=== PATIENT | female | born 1975 | race American Indian/Alaskan Native ===

== ENCOUNTER 2020-05-04 19:07 | Emergency (ER) | payer OTHER ==
[2020-05-04] MEDS ORDERED: traMADol 50 MG TAB PO ONE (20:15)
--- NOTE | 2020-05-04 20:23 | Emergency Department Report ---
ED Fall HPI - General Chief Complaint: Fall Stated Complaint: FALL/ BACK PAIN Time Seen by Provider: 05/04/20 20:10 Source: patient Mode of arrival: Ambulatory - History of Present Illness Initial Comments: Patient is a 45-year-old female presents emergency room after a fall that occurred earlier today. She states that she was cleaning something off the floor in the kitchen and was barefoot and accidentally slipped and fell. She is complaining of lower back pain and entire right arm pain. She denies ever injuring in the past. She denies any loss of consciousness, vision changes, vomiting, numbness, weakness, bowel or bladder incontinence, any other injury. No past medical history. Allergy to amoxicillin and diclofenac. - Related Data Previous Rx's Medication Instructions Recorded Last Taken Type Naproxen [EC-Naproxen] 500 mg PO BID PRN #14 tablet. 05/04/20 Unknown Rx methOCARBAMOL [Robaxin TAB] 500 mg PO BID PRN #14 tab 05/04/20 Unknown Rx Allergies Allergy/AdvReac Type Severity Reaction Status Date / Time amoxicillin Allergy Hives Verified 05/04/20 20:14 diclofenac [From Voltaren] Allergy Itching Verified 05/04/20 20:14 ED Review of Systems ROS: Stated complaint: FALL/ BACK PAIN Other details as noted in HPI Comment: All other systems reviewed and negative ED Past Medical Hx - Past Medical History Previous Medical History?: Yes Hx Hypertension: Yes Hx Asthma: Yes Additional medical history: Fibroids - Surgical History Past Surgical History?: No - Social History Smoking Status: Never Smoker Substance Use Type: None - Medications Home Medications: Home Medications Medication Instructions Recorded Confirmed Last Taken Type Naproxen [EC-Naproxen] 500 mg PO BID PRN #14 tablet. 05/04/20 Unknown Rx methOCARBAMOL [Robaxin TAB] 500 mg PO BID PRN #14 tab 05/04/20 Unknown Rx ED Physical Exam - General Limitations: No Limitations General appearance: alert, in no apparent distress - Head Head exam: Present: atraumatic, normocephalic - Eye Eye exam: Present: normal appearance - ENT ENT exam: Present: mucous membranes moist - Neck Neck exam: Present: normal inspection, full ROM. Absent: tenderness - Respiratory Respiratory exam: Present: normal lung sounds bilaterally. Absent: respiratory distress, wheezes, rales, rhonchi, stridor, chest wall tenderness, accessory muscle use, decreased breath sounds, prolonged expiratory - Cardiovascular Cardiovascular Exam: Present: regular rate, normal rhythm, normal heart sounds. Absent: systolic murmur, diastolic murmur, rubs, gallop - Extremities Exam Extremities exam: Present: other (ttp to the right wrist, no snuffbox ttp, FROM of the RUE, discomfort with ROM Of the right wrist and right shoulder, no sulcus sign, clavicles are equal, no clavicular ttp, no edema, no ecchymosis, no deformity, neurovascularly intact) - Back Exam Back exam: Present: normal inspection, full ROM, paraspinal tenderness (bilateral lumbar paraspinal muscular ttp, no midline C-spine, T-spine or L- spine ttp, no step offs, no deformities). Absent: vertebral tenderness - Neurological Exam Neurological exam: Present: alert, oriented X3, CN II-XII intact, normal gait. Absent: motor sensory deficit - Psychiatric Psychiatric exam: Present: normal affect, normal mood - Skin Skin exam: Present: warm, dry, intact ED Course Vital Signs 05/04/20 20:07 Temperature 98.0 F Pulse Rate 77 Respiratory 16 Rate Blood Pressure 175/101 O2 Sat by Pulse 98 Oximetry ED Medical Decision Making - Radiology Data Radiology results: report reviewed Ordering Physician: CAROL GRANT Date of Service: 05/04/20 Procedure(s): XR forearm RT Accession Number(s): [id number] cc: CAROL GRANT Fluoro Time In Minutes: RIGHT FOREARM 2 VIEW(S) INDICATION / CLINICAL INFORMATION: fall, right arm pain COMPARISON: None available. FINDINGS: BONES / JOINT(S): No acute fracture or subluxation. No significant arthritis. SOFT TISSUES: No significant abnormality. ADDITIONAL FINDINGS: None. IMPRESSION: No acute osseous abnormality. Signer Name: Tanja Coon MD Signed: 05/04/2020 9:02 PM Workstation Name: [id number] Transcribed By: SS Dictated By: TANJA COON Electronically Authenticated By: TANJA COON Signed Date/Time: 05/04/202101 DD/ 00 TD/TT: Ordering Physician: CAROL GRANT Date of Service: 05/04/20 Procedure(s): XR hand 3+V RT Accession Number(s): [id number] cc: CAROL GRANT Fluoro Time In Minutes: RIGHT HAND 3 VIEW(S) INDICATION / CLINICAL INFORMATION: fall, right arm pain COMPARISON: None available. FINDINGS: BONES / JOINT(S): No acute fracture or subluxation. No significant arthritis. SOFT TISSUES: No significant abnormality. ADDITIONAL FINDINGS: None. IMPRESSION: No acute osseous abnormality. Signer Name: Tanja Coon MD Signed: 05/04/2020 9:04 PM Workstation Name: [id number] Transcribed By: Dictated By: TANJA COON Electronically Authenticated By: TANJA COON Signed Date/Time: 05/04/202103 DD/ 02 TD/TT: Ordering Physician: CAROL GRANT Date of Service: 05/04/20 Procedure(s): XR humerus 2+V RT Accession Number(s): [id number] cc: CAROL GRANT Fluoro Time In Minutes: RIGHT HUMERUS 4 VIEW(S) INDICATION / CLINICAL INFORMATION: fall, right arm pain COMPARISON: None available. FINDINGS: BONES / JOINT(S): No acute fracture or subluxation. No significant arthritis. SOFT TISSUES: No significant abnormality. ADDITIONAL FINDINGS: None. IMPRESSION: No acute osseous abnormality. Signer Name: Tanja Cono MD Signed: 05/04/2020 9:03 PM Workstation Name: [id number] Transcribed By: Dictated By: TANJA COON Electronically Authenticated By: TANJA COON Signed Date/Time: 05/04/202102 DD/ 01 TD/TT: Ordering Physician: CAROL GRANT Date of Service: 05/04/20 Procedure(s): XR shoulder 2+V RT Accession Number(s): [id number] cc: CAROL GRANT Fluoro Time In Minutes: RIGHT SHOULDER 3 VIEWS INDICATION / CLINICAL INFORMATION: Fall with right shoulder pain. COMPARISON: None available. FINDINGS: BONES / JOINT(S): There are mild degenerative changes involving the acromioclav icular joint. There is no evidence of fracture or subluxation. SOFT TISSUES: No significant abnormality. ADDITIONAL FINDINGS: The visualized right lung is clear. Signer Name: Pb Underwood MD Signed: 05/04/2020 9:02 PM Workstation Name: [id number] Transcribed By: RT Dictated By: Pb Underwood MD Electronically Authenticated By: Pb Underwood MD Signed Date/Time: 05/04/202101 DD/ 01 TD/TT: Ordering Physician: CAROL GRANT Date of Service: 05/04/20 Procedure(s): XR spine lumbosacral 2-3V Accession Number(s): [id number] cc: CAROL GRANT Fluoro Time In Minutes: LUMBOSACRAL SPINE 2 VIEWS INDICATION / CLINICAL INFORMATION: Slipped and fell x2 today with low back pain. COMPARISON: None available. FINDINGS: BONES / JOINT(S): The vertebral body heights and disc spaces are well- maintained. The pedicles are intact and the SI joints are normal. There is no evidence of fracture or subluxation. SOFT TISSUES: No significant abnormality. ADDITIONAL FINDINGS: None. Signer Name: Pb Underwood MD Signed: 05/04/2020 9:01 PM Workstation Name: [id number] Transcribed By: RT Dictated By: Pb Underwood MD Electronically Authenticated By: Pb Underwood MD Signed Date/Time: 05/04/202100 DD/ 99 TD/TT: - Medical Decision Making Patient is a 45-year-old female presents emergency room after a fall that occurred earlier today. She states that she was cleaning something off the floor in the kitchen and was barefoot and accidentally slipped and fell. She is complaining of lower back pain and entire right arm pain. She denies ever injuring in the past. She denies any loss of consciousness, vision changes, vomiting, numbness, weakness, bowel or bladder incontinence, any other injury. No past medical history. Allergy to amoxicillin and diclofenac. Initial vitals with elevated blood pressure, otherwise stable. On exam: ttp to the right wris t, no snuffbox ttp, FROM of the RUE, discomfort with ROM Of the right wrist and right shoulder, no sulcus sign, clavicles are equal, no clavicular ttp, no edema, no ecchymosis, no deformity, neurovascularly intact, bilateral lumbar paraspinal muscular ttp, no midline C-spine, T-spine or L-spine ttp, no step offs, no deformities. No focal neuro deficits. XR of the RUE and XR lumbar spine with no acute process. discussed all results with patient and answered questions. Patient given tramadol while in the emergency department and symptoms improved. Patient given prescription for naproxen and Robaxin. Advised patient to please take medication as prescribed as needed. May use ice pack, heating pad, rest, and salt bath. Follow-up with your primary care for reexamination. Return to emergency room for any new or worsening symptoms. - Differential Diagnosis strain, sprain, fx, dislocation, contusion, tendnitis Critical care attestation.: If time is entered above; I have spent that time in minutes in the direct care of this critically ill patient, excluding procedure time. ED Disposition Clinical Impression: Right arm pain Fall Qualifiers: Encounter type: initial encounter Qualified Code(s): W19.XXXA - Unspecified fall, initial encounter Acute lumbar myofascial strain Qualifiers: Encounter type: initial encounter Qualified Code(s): S39.012A - Strain of muscle, fascia and tendon of lower back, initial encounter Disposition: DC- TO HOME OR SELFCARE Is pt being admited?: No Does the pt Need Aspirin: No Condition: Stable Instructions: Muscle Strain, [id number] Additional Instructions: patient to please take medication as prescribed as needed. May use ice pack, heating pad, rest, and salt bath. Follow-up with your primary care for reexamination. Return to emergency room for any new or worsening symptoms. Prescriptions: Naproxen [EC-Naproxen] 500 mg PO BID PRN #14 tablet. PRN Reason: pain methOCARBAMOL [Robaxin TAB] 500 mg PO BID PRN #14 tab PRN Reason: pain Referrals: PRIMARY CARE, [Primary Care Provider] - 2-3 Days Time of Disposition: 21:16 Print Language: ARMENIAN
--- NOTE | 2020-05-04 21:05 | XRay Report ---
LUMBOSACRAL SPINE 2 VIEWS INDICATION / CLINICAL INFORMATION: Slipped and fell x2 today with low back pain. COMPARISON: None available. FINDINGS: BONES / JOINT(S): The vertebral body heights and disc spaces are well-maintained. The pedicles are in tact and the SI joints are normal. There is no evidence of fracture or subluxation. SOFT TISSUES: No significant abnormality. ADDITIONAL FINDINGS: None. Signer Name: Pb Underwood MD Signed: 05/04/2020 9:01 PM Workstation Name: [id number]
--- NOTE | 2020-05-04 21:06 | XRay Report ---
RIGHT SHOULDER 3 VIEWS INDICATION / CLINICAL INFORMATION: Fall with right shoulder pain. COMPARISON: None available. FINDINGS: BONES / JOINT(S): There are mild degenerative changes involving the acromioclavicular joint. There is no evidence of fracture or subluxation. SOFT TISSUES: No significant abnormality. ADDITIONAL FINDINGS: The visualized right lung is clear. Signer Name: Pb Underwood MD Signed: 05/04/2020 9:02 PM Workstation Name: [id number]
--- NOTE | 2020-05-04 21:06 | XRay Report ---
RIGHT FOREARM 2 VIEW(S) INDICATION / CLINICAL INFORMATION: fall, right arm pain COMPARISON: None available. FINDINGS: BONES / JOINT(S): No acute fracture or subluxation. No significant arthritis. SOFT TISSUES: No significant abnormality. ADDITIONAL FINDINGS: None. IMPRESSION: No acute osseous abnormality. Signer Name: Jt Coon MD Signed: 05/04/2020 9:02 PM Workstation Name: [id number]
--- NOTE | 2020-05-04 21:07 | XRay Report ---
RIGHT HUMERUS 4 VIEW(S) INDICATION / CLINICAL INFORMATION: fall, right arm pain COMPARISON: None available. FINDINGS: BONES / JOINT(S): No acute fracture or subluxation. No significant arthritis. SOFT TISSUES: No significant abnormality. ADDITIONAL FINDINGS: None. IMPRESSION: No acute osseous abnormality. Signer Name: Jt Coon MD Signed: 05/04/2020 9:03 PM Workstation Name: [id number]
--- NOTE | 2020-05-04 21:08 | XRay Report ---
RIGHT HAND 3 VIEW(S) INDICATION / CLINICAL INFORMATION: fall, right arm pain COMPARISON: None available. FINDINGS: BONES / JOINT(S): No acute fracture or subluxation. No significant arthritis. SOFT TISSUES: No significant abnormality. ADDITIONAL FINDINGS: None. IMPRESSION: No acute osseous abnormality. Signer Name: Jt Coon MD Signed: 05/04/2020 9:04 PM Workstation Name: [id number]
[2020-05-04 22:17] VITALS: BP 156/95
== END 2020-05-04 22:18 | disposition home or self-care (01) ==
LOC: ED 19:07
DX: S39.012A Strain of muscle, fascia and tendon of lower back, initial encounter (principal); M79.601 Pain in right arm; I10 Essential (primary) hypertension; J45.909 Unspecified asthma, uncomplicated; Z79.899 Other long term (current) drug therapy; Z88.1 Allergy status to other antibiotic agents; Z88.8 Allergy status to other drugs, medicaments and biological substances; W01.0XXA Fall on same level from slipping, tripping and stumbling without subsequent striking against object, initial encounter; Y93.89 Activity, other specified; Y92.89 Other specified places as the place of occurrence of the external cause; Y99.8 Other external cause status
CPT/HCPCS: 72100

== ENCOUNTER 2020-07-26 09:24 | Emergency (ER) | payer OTHER ==
[2020-07-26] MEDS ORDERED: dexAMETHasone 4 MG/ML VIAL IM ONE (12:03)
--- NOTE | 2020-07-26 12:03 | Emergency Department Report ---
Minor Respiratory - HPI Chief Complaint: Neck Pain/Injury Stated Complaint: THROAT PAIN Time Seen by Provider: 07/26/20 11:51 Duration: 3 Days Pain Location: Facial, Throat, Nose, Ear Severity: mild Minor Respiratory: Yes Able to Tolerate Fluids, Yes Ear Pain, No Rhinorrhea, No Sore Throat, No Cough, No Sick Contacts, No Hemoptysis, No Chest Pain, No Shortness of Breath, No Fever Other History: 45 YO COMES TO ER WITH CO SWELLING IN HER NECK. ENDORSES LEFT EAR PAIN. NO OMARI. NO CP. NO SOB. DID NOT SEE PCP. 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 AMBULATORY AND NON ILL APPEARING. ED Review of Systems ROS: Stated complaint: THROAT PAIN Other details as noted in HPI Comment: All other systems reviewed and negative ED Past Medical Hx - Past Medical History Previous Medical History?: Yes Hx Hypertension: Yes Hx Asthma: Yes Additional medical history: Fibroids. Thyroid - Surgical History Past Surgical History?: No - Family History Family history: no significant - Social History Smoking Status: Never Smoker Substance Use Type: None - Medications Home Medications: Home Medications Medication Instructions Recorded Confirmed Last Taken Type Cetirizine HCl [ZyrTEC] 10 mg PO DAILY #30 capsule 07/26/20 Unknown Rx Fluticasone [Flonase] 1 spray NS QDAY #1 bottle 07/26/20 Unknown Rx cephALEXin [Keflex] 500 mg PO Q12HR #20 cap 07/26/20 Unknown Rx predniSONE [Deltasone] 20 mg PO DAILY #5 tablet 07/26/20 Unknown Rx Minor Respiratory Exam - Exam General: Vital signs noted. No distress. Alert and acting appropriately. HEENT: Yes Moist Mucous Membranes, No Pharyngeal Erythema, No Pharyngeal Exudates, No Rhinorrhea, No Conjuctival Injection, No Frontal Tenderness, No Maxillary Tenderness Ear: Both TM Erythema, Neither TM Bulge, Neither EAC Pain, Neither EAC Discharge Neck: Yes Adenopathy (L PRE AURICULAR AND SUBMENTAL ), Yes Supple Lungs: Yes Good Air Exchange, No Wheezes, No Ronchi, No Stridor, No Cough, No Labored Respirations, No Retractions, No Use of Accessory Muscles, No Other Abnormal Lung Sounds Heart: Yes Regular, No Murmur Abdomen: Yes Normal Bowel Sounds, No Tenderness, No Peritoneal Signs Skin: No Rash, No Edema Neurologic: Alert and oriented, no deficits. Musculoskeletal: Unremarkable. ED Course Vital Signs 07/26/20 09:59 Temperature 98.2 F Pulse Rate 77 Respiratory 16 Rate Blood Pressure 155/100 [Right] O2 Sat by Pulse 99 Oximetry ED Medical Decision Making - Medical Decision Making TM RED AND EFFUSION L EAR LYMPHADENOPATHY L NECK VSS NO FEVER PT DENIES HX OF HTN;-- ALTHOUGH CHART DOES INDICATED HX. SHE IS OBESE NO CP OR SOB; NO HEADACHE NEURO INTACT PT EDUCATED ON ELEVATED BLOOD PRESSURES- SHE WILL MONITOR AND IF REMAINS ELEVATED WILL SEE PCP NON ILL APPEARING ON EXAM TAKING PO MEDICATED WITH DECADRON IN ER DC HOME WITH DC PLAN OF CARE INCLUDING PCP FOLLOW UP. PT VERBALIZES UNDERSTANDING OF DC PLAN OF CARE. PT UNDERSTANDS SHE SHOULD SEE PCP FOR FOLLOW UP AFTER ANTIBIOTIC TO BE SURE LYMPHADENOPATHY SUBSIDES Vital Signs 07/26/20 09:59 Temperature 98.2 F Pulse Rate 77 Respiratory 16 Rate Blood Pressure 155/100 [Right] O2 Sat by Pulse 99 Oximetry - Differential Diagnosis URI Critical care attestation.: If time is entered above; I have spent that time in minutes in the direct care of this critically ill patient, excluding procedure time. ED Disposition Clinical Impression: Upper respiratory infection, Lymphadenopathy, Elevated blood pressure reading Disposition: DC-01 TO HOME OR SELFCARE Is pt being admited?: No Does the pt Need Aspirin: No Condition: Stable Additional Instructions: meds as ordered today motrin or tylenol for pain follow up with pcp after antibiotic finished to be sure you are getting better referral below Prescriptions: predniSONE [Deltasone] 20 mg PO DAILY #5 tablet Fluticasone [Flonase] 1 spray NS QDAY #1 bottle cephALEXin [Keflex] 500 mg PO Q12HR #20 cap Cetirizine HCl [ZyrTEC] 10 mg PO DAILY #30 capsule Referrals: JEANCARLOS LYNN MD [Staff Physician] - 3-5 Days Time of Disposition: 12:01
[2020-07-26 12:51] VITALS: BP 153/97
== END 2020-07-26 12:59 | disposition home or self-care (01) ==
LOC: ED 09:24
DX: J06.9 Acute upper respiratory infection, unspecified (principal); R59.1 Generalized enlarged lymph nodes; I10 Essential (primary) hypertension; J45.909 Unspecified asthma, uncomplicated; Z79.899 Other long term (current) drug therapy; Z91.040 Latex allergy status; Z88.8 Allergy status to other drugs, medicaments and biological substances
CPT/HCPCS: 96372; 99282; J1100

== ENCOUNTER 2020-09-20 18:41 | Emergency (ER) | payer OTHER ==
--- NOTE | 2020-09-20 20:36 | Emergency Department Report ---
ED Female HPI - General Chief complaint: Vaginal Bleeding Stated complaint: VAGINAL BLEEDING, CRAMPS, DIZZINESS, WEAK Time Seen by Provider: 09/20/20 20:32 Source: patient Mode of arrival: Ambulatory Limitations: No Limitations - History of Present Illness Initial comments: This 45-year-old -[place] female with a possible history of uterine f ibroids and emerged department complaining of a couple week history pelvic pain associated with vaginal bleeding of unknown etiology. She reports having cycles are very heavy menstrual flow and clots. She denies any pelvic pain, reports no no no dysuria, no fever, chills, sweats, no chest pain palpitations, no nausea no vomiting. MD Complaint: vaginal bleeding, pelvic pain Location: suprapubic Radiation: suprapubic Severity: mild, moderate Quality: cramping, dull Consistency: constant Improves with: none Worsens with: none Are you Now?: No - Related Data Previous Rx's Medication Instructions Recorded Last Taken Type Cetirizine HCl [ZyrTEC] 10 mg PO DAILY #30 capsule 07/26/20 Unknown Rx Fluticasone [Flonase] 1 spray NS QDAY #1 bottle 07/26/20 Unknown Rx atenoloL [Tenormin] 25 mg PO DAILY #30 tab 07/26/20 Unknown Rx cephALEXin [Keflex] 500 mg PO Q12HR #20 cap 07/26/20 Unknown Rx predniSONE [Deltasone] 20 mg PO DAILY #5 tablet 07/26/20 Unknown Rx Acetaminophen/Codeine [Tylenol 1 tab PO Q6H PRN #14 tab 09/21/20 Unknown Rx /Codeine # 3 tab] Allergies Allergy/AdvReac Type Severity Reaction Status Date / Time amoxicillin Allergy Hives Verified 05/04/20 20:14 diclofenac [From Voltaren] Allergy Itching Verified 05/04/20 20:14 latex Allergy Rash Verified 07/26/20 12:45 ED Review of Systems ROS: Stated complaint: VAGINAL BLEEDING, CRAMPS, DIZZINESS, WEAK Other details as noted in HPI Comment: All other systems reviewed and negative ED Past Medical Hx - Past Medical History Previous Medical History?: Yes Hx Hypertension: Yes Hx Asthma: Yes Additional medical history: Fibroids. Thyroid - Surgical History Past Surgical History?: No - Social History Smoking Status: Never Smoker Substance Use Type: None - Medications Home Medications: Home Medications Medication Instructions Recorded Confirmed Last Taken Type Cetirizine HCl [ZyrTEC] 10 mg PO DAILY #30 capsule 07/26/20 Unknown Rx Fluticasone [Flonase] 1 spray NS QDAY #1 bottle 07/26/20 Unknown Rx atenoloL [Tenormin] 25 mg PO DAILY #30 tab 07/26/20 Unknown Rx cephALEXin [Keflex] 500 mg PO Q12HR #20 cap 07/26/20 Unknown Rx predniSONE [Deltasone] 20 mg PO DAILY #5 tablet 07/26/20 Unknown Rx Acetaminophen/Codeine [Tylenol 1 tab PO Q6H PRN #14 tab 09/21/20 Unknown Rx /Codeine # 3 tab] ED Physical Exam - General Limitations: No Limitations General appearance: alert, in no apparent distress - Head Head exam: Present: atraumatic, normocephalic - Eye Eye exam: Present: normal appearance - ENT ENT exam: Present: mucous membranes moist - Neck Neck exam: Present: normal inspection - Respiratory Respiratory exam: Present: normal lung sounds bilaterally. Absent: respiratory distress - Cardiovascular Cardiovascular Exam: Present: regular rate, normal rhythm. Absent: systolic murmur, diastolic murmur, rubs, gallop - GI/Abdominal GI/Abdominal exam: Present: soft, tenderness (Some superior tenderness with palpation), normal bowel sounds. Absent: distended, rebound, rigid - Extremities Exam Extremities exam: Present: normal inspection - Back Exam Back exam: Present: normal inspection - Neurological Exam Neurological exam: Present: alert, oriented X3 - Psychiatric Psychiatric exam: Present: normal affect, normal mood - Skin Skin exam: Present: warm, dry, intact, normal color. Absent: rash ED Course Vital Signs 09/20/20 20:32 Temperature 98.8 F Pulse Rate 93 H Respiratory 18 Rate Blood Pressure 168/104 O2 Sat by Pulse 98 Oximetry ED Medical Decision Making - Lab Data Result diagrams: 09/20/20 20:43 09/20/20 20:43 - Radiology Data Radiology results: report reviewed Ultrasound shows large uterine fibroid. Unable to plan for transfer pose due to a Escom issue - Medical Decision Making Female presents emergency department with over few days days of episodic vaginal bleeding most likely of a nonemergent etiology. Based on the history, examination, the ED work-up patient's presentation not consistent with an ectopic , molar , life threatening coagulopathy, serious bacterial infection, central process or other emergency. Patient's bleeding is most likely secondary to, her large fibroids, or the nonemergent cause of abnormal uterine bleeding. No vaginal tears were appreciated on examination Disposition: We will discharge home with return precautions and instructions for prompt [facility] follow-up Critical care attestation.: If time is entered above; I have spent that time in minutes in the direct care of this critically ill patient, excluding procedure time. ED Disposition Clinical Impression: Leiomyoma of body of uterus Disposition: DC-01 TO HOME OR SELFCARE Is pt being admited?: No Does the pt Need Aspirin: No Condition: Stable Instructions: Uterine Artery Embolization for Fibroids, Myomectomy, Uterine Fibroids, Dysfunctional Uterine Bleeding Prescriptions: Acetaminophen/Codeine [Tylenol /Codeine # 3 tab] 1 tab PO Q6H PRN #14 tab PRN Reason: Pain , Severe (7-10) Referrals: [facility] [Provider Group] - 3-5 Days PRIMARY CARE [Primary Care Provider] - 3-5 Days
[2020-09-20 20:41] VITALS: BP 168/104
[2020-09-20 21:03] LABS: Basophils # (Auto) 0.1 K/mm3 (0.0-0.1); Basophils % (Auto) 0.7 % (0.0-1.8); Eosinophils # (Auto) 0.2 K/mm3 (0.0-0.4); Eosinophils % (Auto) 2.3 % (0.0-4.3); Hematocrit 37.8 % (30.3-42.9); Hemoglobin 12.3 gm/dl (10.1-14.3); Lymphocytes # (Auto) 3.4 K/mm3 (1.2-5.4); Lymphocytes % (Auto) 33.8 % (13.4-35.0); Mean Corpuscular HGB Conc 33 % (30-34); Mean Corpuscular Volume 81 fl (79-97); Monocytes # (Auto) 0.7 K/mm3 (0.0-0.8); Monocytes % (Auto) 7.4 % (0.0-7.3); Platelet Count 290 K/mm3 (140-440); Red Blood Count 4.68 M/mm3 (3.65-5.03)
[2020-09-20 21:21] LABS: BUN/Creatinine Ratio 10; Blood Urea Nitrogen 8 mg/dL (7-17); Calcium 8.6 mg/dL (8.4-10.2); Hemolysis Index 3
[2020-09-21] MEDS ORDERED: HYDROcodone/ACETAMINOPHEN 5-325 MG TAB PO STA (01:39)
[2020-09-21 02:36] LABS: Bilirubin,Urine NEG (Negative); Blood,Urine LG (Negative); Calcium Oxalate Crystals,Urine 1+; Color,Urine Yellow (Yellow); Mucus,Urine 2+ /HPF; Protein,Urine <15 mg/dL mg/dL (Negative); Urobilinogen,Urine < 2.0 mg/dL (<2.0)
--- NOTE | 2020-09-21 08:12 | Ultrasound Report ---
ULTRASOUND PELVIS INDICATION / CLINICAL INFORMATION: pelvic pain and bleeding. TECHNIQUE: Transabdominal. Duplex Color Doppler used: Yes. COMPARISON: None available FINDINGS: UTERUS: Enlarged uterus with heterogeneous focus at the fundus measuring 7.7 x 5.8 x 6.2 cm. Endometr ial thickness is 4 mm in this presumably premenopausal patient. RIGHT ADNEXA: No significant ovarian cyst or mass. Normal color Doppler blood flow. LEFT ADNEXA: Ovary is not well visualized. No significant abnormality. URINARY BLADDER: No significant abnormality. FREE FLUID: Minimal. ADDITIONAL FINDINGS: None. IMPRESSION: 1. Large heterogeneous focus at the uterine fundus likely representing a fibroid. Consider further ev aluation, as warranted. 2. Minimal free fluid. Signer Name: Pb Kelley MD Signed: 09/20/2020 10:09 PM Workstation Name: [id number]
== END 2020-09-21 01:53 | disposition home or self-care (01) ==
LOC: ED 18:41
DX: D25.9 Leiomyoma of uterus, unspecified (principal); I10 Essential (primary) hypertension; J45.909 Unspecified asthma, uncomplicated; Z79.899 Other long term (current) drug therapy; Z88.1 Allergy status to other antibiotic agents; Z88.8 Allergy status to other drugs, medicaments and biological substances; Z91.040 Latex allergy status
CPT/HCPCS: 36415; 76856; 76857; 80048; 81001; 84703; 85025

== ENCOUNTER 2020-12-24 08:52 | Emergency (ER) | payer OTHER ==
[2020-12-24 09:35] VITALS: BP 153/103
--- NOTE | 2020-12-24 10:18 | Emergency Department Report ---
ED ENT HPI - General Chief complaint: Earache Stated complaint: EAR/NOSE/THROAT Time Seen by Provider: 12/24/20 10:07 Source: patient Mode of arrival: Ambulatory Limitations: No Limitations - History of Present Illness Initial comments: 45 y/o female comes in for 3-4 week h/o of intermittent cough, sore throat and bumps on tongue. No fever or chills no n/v. Patient denies any chest pain shortness of breath. She is unvaccinated. She has a history of hypertension states she did not take her medication today but she takes atenolol. Patient does have a primary care provider at [facility] but states that she came to the emergency room because it is more convenient for her and her family. complaint: sore throat, ear pain Onset/Timin -: week(s) Location: L ear Severity scale (0 -10): 3 Quality: burning Consistency: intermittent Improves with: none Worsens with: none Associated Symptoms: cough, sore throat. denies: fever, gum swelling, toothache, pain with swallowing, tinnitus, discharge from ear, rhinorrhea - Related Data Previous Rx's Medication Instructions Recorded Last Taken Type Cetirizine HCl [ZyrTEC] 10 mg PO DAILY #30 capsule 07/26/20 Unknown Rx Fluticasone [Flonase] 1 spray NS QDAY #1 bottle 07/26/20 Unknown Rx atenoloL [Tenormin] 25 mg PO DAILY #30 tab 07/26/20 Unknown Rx cephALEXin [Keflex] 500 mg PO Q12HR #20 cap 07/26/20 Unknown Rx predniSONE [Deltasone] 20 mg PO DAILY #5 tablet 07/26/20 Unknown Rx Acetaminophen/Codeine [Tylenol 1 tab PO Q6H PRN #14 tab 09/21/20 Unknown Rx /Codeine # 3 tab] Allergies Allergy/AdvReac Type Severity Reaction Status Date / Time amoxicillin Allergy Hives Verified 05/04/20 20:14 diclofenac [From Voltaren] Allergy Itching Verified 05/04/20 20:14 latex Allergy Rash Verified 07/26/20 12:45 ED Dental HPI - General Chief complaint: Earache Stated complaint: EAR/NOSE/THROAT Time Seen by Provider: 12/24/20 10:07 Source: patient Mode of arrival: Ambulatory Limitations: No Limitations - Related Data Previous Rx's Medication Instructions Recorded Last Taken Type Cetirizine HCl [ZyrTEC] 10 mg PO DAILY #30 capsule 07/26/20 Unknown Rx Fluticasone [Flonase] 1 spray NS QDAY #1 bottle 07/26/20 Unknown Rx atenoloL [Tenormin] 25 mg PO DAILY #30 tab 07/26/20 Unknown Rx cephALEXin [Keflex] 500 mg PO Q12HR #20 cap 07/26/20 Unknown Rx predniSONE [Deltasone] 20 mg PO DAILY #5 tablet 07/26/20 Unknown Rx Acetaminophen/Codeine [Tylenol 1 tab PO Q6H PRN #14 tab 09/21/20 Unknown Rx /Codeine # 3 tab] Allergies Allergy/AdvReac Type Severity Reaction Status Date / Time amoxicillin Allergy Hives Verified 05/04/20 20:14 diclofenac [From Voltaren] Allergy Itching Verified 05/04/20 20:14 latex Allergy Rash Verified 07/26/20 12:45 ED Review of Systems ROS: Stated complaint: EAR/NOSE/THROAT Other details as noted in HPI Comment: All other systems reviewed and negative ED Past Medical Hx - Past Medical History Previous Medical History?: Yes Hx Hypertension: Yes Hx Asthma: Yes Additional medical history: Fibroids. Thyroid - Surgical History Past Surgical History?: Yes Hx Appendectomy: Yes Additional Surgical History: , Right shoulder, Eye surgery, Uvula removal , Right ankle surgery - Social History Smoking Status: Never Smoker Substance Use Type: Prescribed - Medications Home Medications: Home Medications Medication Instructions Recorded Confirmed Last Taken Type Cetirizine HCl [ZyrTEC] 10 mg PO DAILY #30 capsule 07/26/20 Unknown Rx Fluticasone [Flonase] 1 spray NS QDAY #1 bottle 07/26/20 Unknown Rx atenoloL [Tenormin] 25 mg PO DAILY #30 tab 07/26/20 Unknown Rx cephALEXin [Keflex] 500 mg PO Q12HR #20 cap 07/26/20 Unknown Rx predniSONE [Deltasone] 20 mg PO DAILY #5 tablet 07/26/20 Unknown Rx Acetaminophen/Codeine [Tylenol 1 tab PO Q6H PRN #14 tab 09/21/20 Unknown Rx /Codeine # 3 tab] ED Physical Exam - General Limitations: No Limitations General appearance: alert, in no apparent distress - Eye Eye exam: Present: normal appearance - ENT ENT exam: Present: mucous membranes moist, TM's normal bilaterally - Expanded ENT Exam Expanded Mouth exam: Present: normal external inspection, tongue normal Throat exam: Positive: normal inspection. Negative: tonsillar erythema, tonsillomegaly, tonsillar exudate ED Course Vital Signs 12/24/20 09:34 Temperature 98.6 F Pulse Rate 91 H Respiratory 20 Rate Blood Pressure 153/103 [Right] O2 Sat by Pulse 98 Oximetry ED Medical Decision Making - Medical Decision Making 45 y/o female comes in for 3-4 week h/o of intermittent cough, sore throat and bumps on tongue. No fever or chills no n/v. Patient denies any chest pain shortness of breath. She is unvaccinated. She has a history of hypertension states she did not take her medication today but she takes atenolol. Patient does have a primary care provider at [facility] but states that she came to the emergency room because it is more convenient for her and her family. Patient has a normal physical examination vital signs are stable except blood pressure is elevated secondary to noncompliant. Patient has no chest pain shortness of breath or dizziness. Patient be discharged home instructed to take her blood pressure medication and follow-up with her primary care provider. Critical care attestation.: If time is entered above; I have spent that time in minutes in the direct care of this critically ill patient, excluding procedure time. ED Disposition Clinical Impression: Hypertension, Earache on left, Cough Disposition: HOME / SELF CARE / HOMELESS Is pt being admited?: No Does the pt Need Aspirin: No Condition: Stable Instructions: Hypertension (ED), Cough, Adult, [id number], Hypertension, Adult, [id number] Additional Instructions: Recommend taking your blood pressure medication as prescribed by your primary care provider. I recommend [id number] cough medication for your cough. Tylenol ibuprofen for ear pain. Follow-up with your primary care provider or ear nose and throat provider. Referrals: PRIMARY MD LACNE [Primary Care Provider] - 3-5 Days [facility] [Provider Group] - 3-5 Days MILLY BOWLING MD [Referring] - 3-5 Days Forms: Work/School Release Form(ED)
== END 2020-12-24 10:47 | disposition home or self-care (01) ==
LOC: ED 08:52
DX: H92.02 Otalgia, left ear (principal); I10 Essential (primary) hypertension; R05 Cough; J45.909 Unspecified asthma, uncomplicated; D21.9 Benign neoplasm of connective and other soft tissue, unspecified; E07.9 Disorder of thyroid, unspecified; Z98.890 Other specified postprocedural states; Z88.0 Allergy status to penicillin; Z88.6 Allergy status to analgesic agent; Z91.040 Latex allergy status
CPT/HCPCS: 99282

== ENCOUNTER 2021-11-24 02:19 | Emergency (ER) | payer SELFPAY ==
[2021-11-24] MEDS ORDERED: ALUM-MAG HYDROXIDE-SIMETHICONE 200-200-20MG/5ML ORAL LIQD 30 ML PO ONE (12:12)
[2021-11-24] MEDS ORDERED: LIDOCAINE VISCOUS 2% 15 ML ORAL LIQD PO ONE (12:12)
[2021-11-24] MEDS ORDERED: predniSONE 20 MG TAB PO ONE (12:12)
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
[2021-11-24 13:56] VITALS: BP 130/80
== END 2021-11-24 13:56 | disposition home or self-care (01) ==
LOC: ED 02:19
DX: T28.0XXA Burn of mouth and pharynx, initial encounter (principal); T31.0 Burns involving less than 10% of body surface; R50.9 Fever, unspecified; I10 Essential (primary) hypertension; J45.909 Unspecified asthma, uncomplicated; Z90.49 Acquired absence of other specified parts of digestive tract; Z98.890 Other specified postprocedural states; Z88.1 Allergy status to other antibiotic agents; Z88.0 Allergy status to penicillin; Z91.040 Latex allergy status; Z79.899 Other long term (current) drug therapy
CPT/HCPCS: 99282